=== PATIENT | male | born 1960 | race Caucasian/White ===

== ENCOUNTER 2017-06-26 21:32 | Emergency (ER) | payer OTHER ==
[2017-06-26 21:35] VITALS: BP 136/72
[2017-06-26] MEDS ORDERED: IBUP600T16 PO (21:50)
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
[2017-06-26] MEDS ORDERED: IBUPROFEN 600 MG TABLET. PO ONE (22:30)
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
== END 2017-06-26 22:12 | disposition home or self-care (01) ==
LOC: ER 21:32
DX: S63.501A Unspecified sprain of right wrist, initial encounter (principal); S50.11XA Contusion of right forearm, initial encounter; Y08.09XA Assault by strike by other specified type of sport equipment, initial encounter; Y93.89 Activity, other specified; Y92.89 Other specified places as the place of occurrence of the external cause; Y99.8 Other external cause status
CPT/HCPCS: 73110; 99284